=== PATIENT | male | born 1975 | race Asian ===

== ENCOUNTER 2019-03-11 02:11 | Inpatient (IN) | payer BC ==
[2019-03-11] VITALS (7 sets, daily range): BP systolic 119–133; BP diastolic 67–81; TEMP 97.5–100.9; Ht 182.9 cm; Wt 132.5 kg
[~2019-03-11] VITALS: Ht 182.9 cm; Wt 132.5 kg
[2019-03-11 03:04] LABS: PLATELET COUNT 396 K/uL (142-355)
[2019-03-11 03:14] LABS: POTASSIUM 3.8 mmol/L (3.6-5.2)
[2019-03-12] VITALS: BP 105/68; TEMP 99
[2019-03-12 04:00] VITALS: BP 137/77; TEMP 99.8
[2019-03-12 05:42] LABS: POTASSIUM 3.7 mmol/L (3.6-5.2)
[2019-03-12 05:53] LABS: PLATELET COUNT 357 K/uL (142-355)
[2019-03-12 08:24] VITALS: BP 121/74; TEMP 100.8
[2019-03-12] MEDS ORDERED: LISITAB PO (11:03)
[2019-03-12] MEDS ORDERED: LIPITOR20 MG PO (11:07)
[2019-03-12] MEDS ORDERED: ASPIRIN 81 LOW81 MG PO (11:07)
[2019-03-12] MEDS ORDERED: CIPR500T PO (11:42)
[2019-03-12] MEDS ORDERED: METR250T19 PO (11:43)
[2019-03-12 12:12] VITALS: BP 134/80; TEMP 99.2
== END 2019-03-12 14:00 | disposition home or self-care (01) | DRG 392 ==
LOC: ED 02:11 → MED/SURG 04:30
PROVIDERS: Emergency Medicine Emergency Medical Services; ADMIT Internal Medicine
DX: K57.30 Diverticulosis of large intestine without perforation or abscess without bleeding (principal); K63.89 Other specified diseases of intestine; I10 Essential (primary) hypertension; R10.9 Unspecified abdominal pain
CPT/HCPCS: 36415; 51702; 80053; 81000; 83605; 85027; 87040; 96360; 96365; 96366; 96375; 99284; J0744; J1170; J2175; J2405; J3490; Q9963

== ENCOUNTER 2020-07-15 09:15 | Outpatient (CLI) | payer BC ==
[~2020-07-15 09:15] MED LIST: ASPIRIN 81 LOW81 MG PO; CIPR500T PO; LIPITOR20 MG PO; LISITAB PO; METR250T19 PO
== END 2020-07-15 19:31 | disposition home or self-care (01) ==
LOC: RAD 09:15
PROVIDERS: ATTEND Nurse Practitioner Family
DX: I10 Essential (primary) hypertension (principal); E78.5 Hyperlipidemia, unspecified; K21.9 Gastro-esophageal reflux disease without esophagitis; E66.01 Morbid (severe) obesity due to excess calories; M54.9 Dorsalgia, unspecified

== ENCOUNTER 2021-08-18 15:54 | Outpatient (CLI) | payer BC | END 2021-08-18 18:59 | disposition home or self-care (01) | LOC: CT 15:54 | PROVIDERS: ATTEND Nurse Practitioner Family | DX: R10.9 Unspecified abdominal pain (principal); E78.5 Hyperlipidemia, unspecified; I10 Essential (primary) hypertension; R73.03 Prediabetes; E66.9 Obesity, unspecified ==